=== PATIENT | female | born 2000 | race Caucasian/White ===

== ENCOUNTER 2021-07-01 02:43 | Emergency (ER) | payer OTHER, SELFPAY ==
[2021-07-01 03:05] VITALS: BP 135/73; PULSE 73; RESP 14; TEMP 36.4; O2SAT 99; BMI 34.2
--- NOTE | 2021-07-01 03:41 | ED_ITS ---
HPI - Headache General Chief Complaint: Headache Stated Complaint: migraine Time Seen by Provider: 07/01/21 03:36 Source: patient Mode of arrival: ambulatory History of Present Illness HPI Narrative: 21-year-old female with history of self-reported migraines presents with left-sided headache since yesterday without associated nausea, photophobia, neck pain, auditory sensitivity. Patient states that 2 weeks ago she was seen for similar symptoms at the urgent care and at that time had been provided a Toradol injection with good resolution of her symptoms. Otherwise, patient states that she is up-to-date on childhood vaccinations and denies any fever, chills, sore throat, recent cough and has had both COVID-19 vaccines and otherwise denies any speech/motor/sensory deficits. Related Data Allergies Allergy/AdvReac Type Severity Reaction Status Date / Time No Known Allergies Allergy Unverified 07/22/20 19:36 [No Known Allergies*] Review of Systems Review of Systems: Pertinent positives and negatives as stated in HPI 10 point review of systems is otherwise negative. PMFSH Past Medical History Source: nursing notes reviewed Social History Social History Alcohol intake: unknown Patient Tobacco Use Status: Tobacco use Unknown Use of substances other than those prescribed or required for medical reasons: Unknown Advance Directives: No Advance Directives Information Provided: Yes Patient : No Physical Exam Vital Signs: Vital Signs: Last Vital Signs Temp 97.5 F 07/01/21 03:05 Pulse 73 07/01/21 03:05 Resp 14 07/01/21 03:05 BP 135/73 07/01/21 03:05 Pulse Ox 99 07/01/21 03:05 Body Mass Index 34.2 VITAL SIGNS: Reviewed. GENERAL: Well developed, well nourished, in no acute distress. HEAD: Normocephalic/atraumatic EYES: PERRLA, EOMI intact without pain, no nystagmus EARS: Ext canals without abnormality, TMs non-bulging and non-erythematous NOSE: Nares patent bilateral OROPHARYNX: no oral lesions noted, posterior pharynx clear and non-erythematous without noted tonsillar enlargement/erythema/exudates NECK: Supple, no adenopathy LUNGS: Normal breath sounds. No adventitious sounds or accessory muscle use. SpO2<99> CARDIOVASCULAR: Regular rate and rhythm without noted murmurs ABDOMEN: Soft, non-tender, non-distended with bowel sounds. SKIN: Inspection of the skin reveals no rashes NEUROLOGIC: Alert and oriented x 4. Strength and sensation to light touch were grossly intact x 4. Course Course Course Narrative: 21-year-old female with history and clinical presentation consistent with headache that does not appear to be tension or cluster in etiology. Will treat patient with combination medications after obtaining urinalysis with urine test. Patient denies any use of control. Review of all investigations without acute findings and patient received combination Tylenol with Toradol and reports improvement in her headache symptoms. She was discharged in stable condition with instructions to follow up with the primary care provider for further investigations an outpatient management. MDM - Headache Lab Data Labs: Lab Results 07/01/21 07/01/21 Range/Units 04:03 04:03 Urine Color YELLOW Urine Appearance CLEAR Urine pH 6.0 (5.0-8.0) Ur Specific [place] 1.015 (1.005-1.025) Urine Protein NEG (NEG-TRACE) MG/DL Urine Glucose (UA) NEG (NEG) MG/DL Urine Ketones NEG (NEG) MG/DL Urine Blood NEG (NEG) Urine Nitrite NEG (NEG) Ur Leukocyte Esterase NEG (NEG) Urine Test NEGATIVE (NEGATIVE) Discharge Plan Discharge Clinical Impression: Headache Patient Disposition: Home, Self-Care Instructions: General Headache (ED) Additional Instructions: 1. Continue to stay well hydrated especially with water. 2. Tylenol 1000 mg, orally, every 6 hours as needed for pain control. Do not exceed 4000 mg within 24 hours. 3. Ibuprofen 400 mg, orally with milk or food, every 6 hours as needed for pain control. Recommend using this in combination with the Tylenol for increased symptom relief. 4. Follow-up with your primary care provider for re-evaluation and definitive plan for your headaches. Return to the ER for acute worsening of your symptoms. Referrals: Physician,None [Primary Care Provider] - 2 days
[2021-07-01 04:23] LABS: Appearance Urine CLEAR; Color Urine YELLOW; Glucose Urine UA NEG (NEG); Leukocyte Esterase Urine NEG (NEG); Nitrite Urine NEG (NEG); Specific Gravity - Urine 1.015 (1.005-1.025); Urine Blood NEG (NEG); Urine Ketones NEG (NEG); Urine Protein NEG (NEG-TRACE)
[2021-07-01 04:25] LABS: UPreg QC Valid YES; Urine Pregnancy NEGATIVE (NEGATIVE)
[2021-07-01] MEDS: Acetaminophen 325 MG TABLET 975 MG PO (04:36)
[2021-07-01] MEDS: Ketorolac Tromethamine 15 MG/ML VIAL IM (04:38)
== END 2021-07-01 05:49 | disposition home or self-care (01) ==
PROVIDERS: Emergency Provider Student in an Organized Health Care Education/Training Program
DX: R51.9 Headache, unspecified (principal)
CPT/HCPCS: 81003; 81025; 96372; 99284; J1885

== ENCOUNTER 2021-11-02 14:36 | Outpatient (REF) | payer OTHER, SELFPAY ==
[2021-11-02 15:22] LABS: Influenza A PCR NEGATIVE (Negative); Influenza B PCR NEGATIVE (Negative); Resp Syncy Virus RNA Qual PCR NEGATIVE (Negative); SARS COV2 PCR INHOUSE NEGATIVE (Negative)
== END 2021-11-02 14:37 | disposition home or self-care (01) ==
LOC: HO.LNP 14:36
PROVIDERS: Visit Provider Physician Assistant Medical
DX: J06.9 Acute upper respiratory infection, unspecified (principal); B34.9 Viral infection, unspecified; Z20.822 Contact with and (suspected) exposure to COVID-19
CPT/HCPCS: 0241U

== ENCOUNTER 2022-03-30 14:56 | Emergency (ER) | payer OTHER, SELFPAY ==
--- NOTE | ~2022-03-30 | CT_ITS ---
EXAMINATION: CT ABDOMEN AND PELVIS WITHOUT CONTRAST CLINICAL INFORMATION: Nausea, vomiting, right-sided abdominal pain COMPARISON: Abdominal ultrasound 11/23/2018 TECHNIQUE: Multidetector volumetric imaging was performed from the superior aspect of the liver through the pubic symphysis. Sagittal and coronal reformatted images were obtained on the technologist's workstation. This CT examination was performed using dose optimization techniques as appropriate, variously including the following: *Automated exposure control *Adjustment of mA and/or kV according to patient size (this includes techniques or standardized protocols for targeted exams where dose is matched to indication/reason for exam; i.e. extremities or head) *Use of iterative reconstruction technique DLP: 471 mGy-cm FINDINGS: LUNG BASES: Unremarkable. ABDOMINAL AND PELVIC WALL: Unremarkable. LIVER AND BILIARY TREE: Unremarkable. GALLBLADDER: Unremarkable. PANCREAS: Unremarkable. SPLEEN: Unremarkable. ADRENAL GLANDS: Unremarkable. KIDNEYS AND URETERS: No hydronephrosis or nephrolithiasis. GASTROINTESTINAL TRACT: Large and small bowel are unremarkable. Normal appendix. VASCULAR: Unremarkable. LYMPH NODES/PERITONEUM: No lymphadenopathy. FREE FLUID: None. BLADDER: Unremarkable. PELVIC VISCERA: There is asymmetric fullness to the right adnexa, however it is difficult to distinguish the ovary separate from surrounding loops of small bowel. OSSEOUS STRUCTURES: Unremarkable. CT/CT abdomen pelvis wo con IMPRESSION: There is asymmetric fullness to the right adnexa, however it is difficult to distinguish the ovary separate from surrounding loops of small bowel. Considering symptoms of right lower quadrant pain if any concern for ovarian pathology a pelvic ultrasound could be obtained to further evaluate. No hydronephrosis or nephrolithiasis. Normal appendix.
--- NOTE | ~2022-03-30 | US_ITS ---
EXAMINATION: US PELVIS CLINICAL INFORMATION: Right lower quadrant pain, fullness on CT COMPARISON: CT 03/30/2022 TECHNIQUE: Ultrasound of the pelvis is performed using both transabdominal and transvaginal transducers along with Doppler. Transvaginal imaging is performed due to inadequate visualization transabdominally. FINDINGS: The uterus measures 7.2 cm in length and 3.5 x 3.9 cm in AP and transverse dimensions. Endometrial stripe measures 1.3 cm in thickness. The right ovary measures 4.4 x 2.6 x 2.0 cm. There is a right ovarian cyst measuring 2.0 cm. The left ovary measures 2.6 x 1.5 x 1.8 cm and appears unremarkable. Doppler evaluation demonstrates normal-appearing arterial and venous waveforms in both ovaries. No significant free fluid identified. US/US pelvic and transvaginal IMPRESSION: Right ovarian cyst measuring 2 cm, which may represent a dominant follicle. Otherwise no acute findings identified.
--- NOTE | ~2022-03-30 | US_ITS ---
EXAMINATION: US PELVIS CLINICAL INFORMATION: Right lower quadrant pain, fullness on CT COMPARISON: CT 03/30/2022 TECHNIQUE: Ultrasound of the pelvis is performed using both transabdominal and transvaginal transducers along with Doppler. Transvaginal imaging is performed due to inadequate visualization transabdominally. FINDINGS: The uterus measures 7.2 cm in length and 3.5 x 3.9 cm in AP and transverse dimensions. Endometrial stripe measures 1.3 cm in thickness. The right ovary measures 4.4 x 2.6 x 2.0 cm. There is a right ovarian cyst measuring 2.0 cm. The left ovary measures 2.6 x 1.5 x 1.8 cm and appears unremarkable. Doppler evaluation demonstrates normal-appearing arterial and venous waveforms in both ovaries. No significant free fluid identified. US/US pelvic ovarian doppler IMPRESSION: Right ovarian cyst measuring 2 cm, which may represent a dominant follicle. Otherwise no acute findings identified.
--- NOTE | ~2022-03-30 | US_ITS ---
EXAMINATION: US ABDOMEN LIMITED CLINICAL INFORMATION: Right upper quadrant pain. COMPARISON: CT 03/30/2022 TECHNIQUE: Real-time imaging of the right upper quadrant abdominal viscera. FINDINGS: PANCREAS: The visualized proximal portion of the pancreas is unremarkable. The distal portion is obscured secondary to overlying bowel gas. LIVER: The liver is normal in size. The liver contour is normal. Parenchymal echogenicity is normal. No focal hepatic lesion. There is no intrahepatic biliary duct dilatation seen. GALLBLADDER: The gallbladder is contracted without evidence of stones, sludge, polyps, significant wall thickening or pericholecystic fluid. COMMON BILE DUCT: Normal in caliber measuring 0.3 cm in diameter. RIGHT KIDNEY: No hydronephrosis. No renal calculi or focal parenchymal lesions. The kidney measures 10.5 cm in maximum dimension. FREE FLUID: None. US/US abdomen limited IMPRESSION: No acute findings identified. Contracted gallbladder noted.
[2022-03-30 15:32] VITALS: BP 132/84; PULSE 85; RESP 18; TEMP 36.9; O2SAT 99; BMI 31.2
[2022-03-30] MEDS: Ondansetron ODT 4 MG TAB.RAPDIS TRANSLINGU (15:37)
[2022-03-30 15:48] LABS: MANUAL DIFF FLAG NO
[2022-03-30 15:49] LABS: Basophils Percent Auto 0.2 % (0-2); Eosinophils Percent Auto 0.2 % (0-4); Hematocrit 40.7 % (37.0-47.0); Hemoglobin 13.5 g/dl (12.0-16.0); Imm Gran Abs Auto 0.05 X10*3/uL (0.00-0.03); Imm Gran Pct Auto 0.4 % (0.0-0.4); Lymphocytes Absolute Auto 2.1 X10*3/uL (1.2-4.9); Lymphocytes Percent Auto 16.5 % (20-40); Mean Corpuscular HGB Conc 33.2 g/dl (31.0-35.0); Mean Corpuscular Hemoglobin 27.7 pg (27.0-33.0); Mean Corpuscular Volume 83.4 fL (80.0-98.0); Monocytes Absolute Auto 0.8 X10*3/uL (0.1-1.2); Neutrophils Absolute Auto 9.7 x10*3/uL (2.0-8.3); Neutrophils Percent Auto 76.7 % (45-73); Platelet Count 376 X10*3/uL (160-400); Red Blood Count 4.88 X10*6/uL (4.20-5.50); Red Cell Distribution Width 13.4 % (11.0-16.0); White Blood Count 12.7 X10*3/uL (4.8-10.8)
[2022-03-30 16:15] LABS: Alanine Aminotransferase 51 U/L (0-31); Albumin Level 4.6 g/dL (3.5-5.0); Alkaline Phosphatase 113 U/L (39-117); Anion Gap 20 (12-20); Aspartate Amino Transferase 36 U/L (5-31); Bilirubin Total 0.9 mg/dL (0.0-1.0); Blood Urea Nitrogen 8 mg/dL (9-16); Calcium 9.9 mg/dL (8.4-10.2); Carbon Dioxide 16 mmol/L (22-29); Chloride 105 mmol/L (96-108); Creatinine Clr Calc Pharmacy 109.6; Estimated Glomerular Filt Rate > 60; Glucose Random 75 mg/dL (60-115); Potassium 3.8 mmol/L (3.3-5.1); Sodium 137 mmol/L (135-145); Total Protein 8.2 g/dL (6.5-8.0)
[2022-03-30 17:41] LABS: HCG Quantitative < 2 mIU/mL
[2022-03-30 20:43] LABS: COVID-19 Test Negative (Negative); IDNOW Serial# 16C4AD1C; Influenza A Negative (Negative); Influenza B2 Negative (Negative)
--- NOTE | 2022-03-30 23:41 | PC.NURSE ---
advised patient of need for urine sample, pt states she is unable to go at this time but will try again as soon as she can.
[2022-03-30 23:49] VITALS: BP 112/62; PULSE 72; RESP 18; TEMP 37.2; O2SAT 97
--- NOTE | 2022-03-31 00:05 | ED_ITS ---
HPI - Abdominal Pain General Chief Complaint: Abdominal Pain Stated Complaint: vomiting, righ side pain, back pain Time Seen by Provider: 03/30/22 17:12 Source: patient Mode of arrival: ambulatory History of Present Illness HPI narrative: 21-year-old female without significant past medical history other than family history PCOS and reports that her older sister had ovarian torsion which required removal of ovary. She states she has been experiencing 10 weeks nausea, bilateral lower quadrant pain associated with multiple episodes of n ausea and vomiting. Patient states that her pain restarted again last night and is currently 6/10. Patient states that the pain radiates into her lower back as well and denies any vaginal discharge in his recently been tested for STD eyes and was noted to be negative. Otherwise, she denies any fever, chills, diarrhea or urinary symptoms and denies any history of renal colic Related Data Previous Rx's Medication Instructions Recorded ondansetron 4 mg disintegrating 4 mg PO Q6H PRN #7 tab 03/31/22 tablet Allergies Allergy/AdvReac Type Severity Reaction Status Date / Time No Known Allergies Allergy Verified 03/30/22 15:32 [No Known Allergies*] Review of Systems Review of Systems Pertinent positives and negatives as stated in HPI 10 point review of systems is otherwise negative. [facility] Past Medical History Source: nursing notes reviewed Social History Social History Alcohol intake: unknown Patient Tobacco Use Status: Tobacco use Unknown Advance Directives: No Physical Exam ED Vital Signs: Vital Signs - 24 hr 03/30/22 15:32 03/30/22 23:49 Temperature 98.5 F 99.0 F Pulse Rate 85 72 Respiratory Rate 18 18 Blood Pressure 132/84 112/62 Pulse Oximetry 99 97 BMI result Body Mass Index 31.2 VITAL SIGNS: Reviewed. GENERAL: Well developed, well nourished, in no acute distress. HEAD: Normocephalic/atraumatic EYES: PERRLA, EOMI EARS: Ext canals without abnormality OROPHARYNX: no oral lesions noted, posterior pharynx clear LUNGS: Normal breath sounds. No adventitious sounds or accessory muscle use. SpO2<99> CARDIOVASCULAR: Regular rate and rhythm without noted murmurs ABDOMEN: Soft, tenderness on palpation of the right upper quadrant, less discomf ort on palpation at bilateral lower abdomen, no rebound or masses noted, non- distended with bowel sounds. MUSCULOSKELETAL: No tenderness, deformities, or effusions noted on gross inspection. EXTREMITIES: No cyanosis, clubbing or edema. SKIN: Inspection of the skin reveals no rashes NEUROLOGIC: Alert and oriented x 4. Strength and sensation to light touch were grossly intact x 4. Course Course Course Narrative: 21-year-old female with history and clinical presentation after review of all investigations of intermittent ovarian torsion versus possible cholecystitis. Review of all investigations without acute findings and noted leukocytosis likely secondary to patient's episodes of nausea and vomiting. Patient was informed of all results and recommended to follow-up with her director social and/or her primary care provider for further evaluation. Patient is currently asymptomatic and is otherwise discharged home in stable condition. MDM - Abdominal Pain Lab Data Result diagrams: 03/30/22 15:45 03/30/22 15:45 Labs: Lab Results 03/30/22 03/30/22 03/30/22 Range/Units 15:45 15:45 20:19 WBC 12.7 H (4.8-10.8) X10*3/uL RBC 4.88 (4.20-5.50) X10*6/uL Hgb 13.5 (12.0-16.0) g/dl Hct 40.7 (37.0-47.0) % MCV 83.4 (80.0-98.0) fL MCH 27.7 (27.0-33.0) pg MCHC 33.2 (31.0-35.0) g/dl RDW 13.4 (11.0-16.0) % Plt Count 376 (160-400) X10*3/uL MPV 10.0 (9.4-12.3) fL Immature Gran % (Auto) 0.4 (0.0-0.4) % Neut % (Auto) 76.7 H (45-73) % Lymph % (Auto) 16.5 L (20-40) % [place] % (Auto) 6.0 (2-11) % Eos % (Auto) 0.2 (0-4) % Baso % (Auto) 0.2 (0-2) % Lymph # (Auto) 2.1 (1.2-4.9) X10*3/uL [place] # (Auto) 0.8 (0.1-1.2) X10*3/uL Eos # (Auto) 0.0 (0.0-0.4) X10*3/uL Baso # (Auto) 0.0 (0.0-0.2) X10*3/uL Abs Immat Gran (auto) 0.05 H (0.00-0.03) X10*3/uL Absolute Neuts (auto) 9.7 H (2.0-8.3) x10*3/uL Absolute Nucleated RBC 0.000 (0.0-0.012) X10*3/uL Nucleated RBC % (auto) 0.0 (0.0-0.2) /100WBC Sodium 137 (135-145) mmol/L Potassium 3.8 (3.3-5.1) mmol/L Chloride 105 (96-108) mmol/L Carbon Dioxide 16 L (22-29) mmol/L Anion Gap 20 (12-20) BUN 8 L (9-16) mg/dL Creatinine 0.71 (0.5-1.4) mg/dL Estim Creat Clear Calc 109.6 Estimated GFR > 60 Random Glucose 75 (60-115) mg/dL Calcium 9.9 (8.4-10.2) mg/dL Total Bilirubin 0.9 (0.0-1.0) mg/dL AST 36 H (5-31) U/L ALT 51 H (0-31) U/L Alkaline Phosphatase 113 (39-117) U/L Total Protein 8.2 H (6.5-8.0) g/dL Albumin 4.6 (3.5-5.0) g/dL Lipase 9 (8-78) U/L Beta HCG, Quant < 2 mIU/mL Urine Color Urine Appearance Urine pH (5.0-8.0) Ur Specific [place] (1.005-1.025) Urine Protein (NEG-TRACE) MG/DL Urine Glucose (UA) (NEG) MG/DL Urine Ketones (NEG) MG/DL Urine Blood (NEG) Urine Nitrite (NEG) Ur Leukocyte Esterase (NEG) COVID-19 (ERIC) (Negative) COVID-19 Clin Com Influenza Type A (TRACY) Negative (Negative) Influenza Type B (TRACY) Negative (Negative) Influenza A & B Note See Note 03/30/22 03/31/22 Range/Units 20:19 02:07 WBC (4.8-10.8) X10*3/uL RBC (4.20-5.50) X10*6/uL Hgb (12.0-16.0) g/dl Hct (37.0-47.0) % MCV (80.0-98.0) fL MCH (27.0-33.0) pg MCHC (31.0-35.0) g/dl RDW (11.0-16.0) % Plt Count (160-400) X10*3/uL MPV (9.4-12.3) fL Immature Gran % (Auto) (0.0-0.4) % Neut % (Auto) (45-73) % Lymph % (Auto) (20-40) % [place] % (Auto) (2-11) % Eos % (Auto) (0-4) % Baso % (Auto) (0-2) % Lymph # (Auto) (1.2-4.9) X10*3/uL [place] # (Auto) (0.1-1.2) X10*3/uL Eos # (Auto) (0.0-0.4) X10*3/uL Baso # (Auto) (0.0-0.2) X10*3/uL Abs Immat Gran (auto) (0.00-0.03) X10*3/uL Absolute Neuts (auto) (2.0-8.3) x10*3/uL Absolute Nucleated RBC (0.0-0.012) X10*3/uL Nucleated RBC % (auto) (0.0-0.2) /100WBC Sodium (135-145) mmol/L Potassium (3.3-5.1) mmol/L Chloride (96-108) mmol/L Carbon Dioxide (22-29) mmol/L Anion Gap (12-20) BUN (9-16) mg/dL Creatinine (0.5-1.4) mg/dL Estim Creat Clear Calc Estimated GFR Random Glucose (60-115) mg/dL Calcium (8.4-10.2) mg/dL Total Bilirubin (0.0-1.0) mg/dL AST (5-31) U/L ALT (0-31) U/L Alkaline Phosphatase (39-117) U/L Total Protein (6.5-8.0) g/dL Albumin (3.5-5.0) g/dL Lipase (8-78) U/L Beta HCG, Quant mIU/mL Urine Color DK YELLOW Urine Appearance HAZY Urine pH 6.0 (5.0-8.0) Ur Specific [place] >= 1.030 H (1.005-1.025) Urine Protein NEG (NEG-TRACE) MG/DL Urine Glucose (UA) NEG (NEG) MG/DL Urine Ketones >=80 (NEG) MG/DL Urine Blood NEG (NEG) Urine Nitrite NEG (NEG) Ur Leukocyte Esterase NEG (NEG) COVID-19 (ERIC) Negative (Negative) COVID-19 Clin Com See Note Influenza Type A (TRACY) (Negative) Influenza Type B (TRACY) (Negative) Influenza A & B Note Discharge Plan Discharge Clinical Impression: Nausea & vomiting, Dehydration Patient Disposition: Home, Self-Care Instructions: Dehydration (ED), Acute Nausea and Vomiting (ED) Additional Instructions: 1. Resume all home medications as prescribed. 2. You have been provided with a prescription to control your nausea and should use this over the next 24 hours to promote further rehydration, especially with water. 3. Please follow-up with your primary care provider in the next 1-2 days for further evaluation and outpatient management. Return to the ER for acute worsening of symptoms. Prescriptions: New ondansetron 4 mg tablet,disintegrating 4 mg PO Q6H PRN (Reason: nausea and vomiting) Qty: 7 0RF
[2022-03-31 00:11] LABS: Lipase 9 U/L (8-78)
[2022-03-31] MEDS: 0.9 % Sodium Chloride 1,000 ML 999 ML IV (00:53)
[2022-03-31] MEDS: ondansetron HCL 4 MG/2 ML VIAL IVPUSH (00:53)
[2022-03-31] MEDS: Ketorolac Tromethamine 30 MG/ML VIAL 15 MG IVPUSH (00:53)
[2022-03-31 02:20] LABS: Appearance Urine HAZY; Color Urine DK YELLOW; Glucose Urine UA NEG (NEG); Leukocyte Esterase Urine NEG (NEG); Nitrite Urine NEG (NEG); Specific Gravity - Urine >= 1.030 (1.005-1.025); Urine Blood NEG (NEG); Urine Ketones >=80 MG/DL (NEG); Urine Protein NEG (NEG-TRACE)
== END 2022-03-31 04:04 | disposition home or self-care (01) ==
PROVIDERS: Physician Assistant Medical; Emergency Provider Student in an Organized Health Care Education/Training Program
DX: R11.2 Nausea with vomiting, unspecified (principal); E86.0 Dehydration; D72.829 Elevated white blood cell count, unspecified; Z20.822 Contact with and (suspected) exposure to COVID-19
CPT/HCPCS: 36415; 74176; 76705; 76830; 76856; 80053; 81003; 83690; 84702; 85025; 87502; 87635; 93975; 96361; 96374; 96375; 99284; J1885; J2405

== ENCOUNTER 2023-11-09 01:25 | Emergency (ER) | payer OTHER, SELFPAY ==
[2023-11-09 01:43] VITALS: BP 137/68; PULSE 120; RESP 22; TEMP 37.2; O2SAT 98; BMI 28.3
== END 2023-11-09 07:10 | disposition left against medical advice (07) ==
PROVIDERS: Emergency Provider Emergency Medicine
DX: R11.2 Nausea with vomiting, unspecified (principal); R10.2 Pelvic and perineal pain; Z79.899 Other long term (current) drug therapy
CPT/HCPCS: 36415; 80053; 85025; 99281; 99283